=== PATIENT | male | born 2000 ===

== ENCOUNTER 2021-10-02 16:30 | Outpatient (CLI) | payer BC | END 2021-10-02 16:31 | disposition home or self-care (01) | LOC: SLEEPLAB 16:30 | PROVIDERS: ATTEND Internal Medicine Critical Care Medicine | DX: G47.33 Obstructive sleep apnea (adult) (pediatric) (principal); R53.83 Other fatigue; R06.3 Periodic breathing | CPT/HCPCS: 95806 ==